=== PATIENT | female | born 1965 | race Hispanic/Latino ===

== ENCOUNTER → 2022-05-25 | Outpatient (CLI) | payer BC | END | disposition home or self-care (01) | LOC: RAH 10:00 | PROVIDERS: ATTEND Internal Medicine | DX: E21.0 Primary hyperparathyroidism (principal); D36.7 Benign neoplasm of other specified sites | CPT/HCPCS: 78070; A9500 ==

== ENCOUNTER → 2022-09-27 | Outpatient (CLI) | payer OTHER ==
[~2022-09-27] MED LIST: IOHEXOL 350 MG/ML 100ML INFUS..BTL IV ONE
== END | disposition home or self-care (01) ==
LOC: RAH 07:45
PROVIDERS: ATTEND Surgery
DX: N83.292 Other ovarian cyst, left side (principal); E83.52 Hypercalcemia
CPT/HCPCS: 70492; Q9967

== ENCOUNTER → 2023-01-05 | Outpatient (CLI) | payer OTHER | END | disposition home or self-care (01) | LOC: RAH 13:52 | PROVIDERS: ATTEND Family Medicine | DX: I13.10 Hypertensive heart and chronic kidney disease without heart failure, with stage 1 through stage 4 chronic kidney disease, or unspecified chronic kidney disease (principal); N18.9 Chronic kidney disease, unspecified; I82.622 Acute embolism and thrombosis of deep veins of left upper extremity; M79.622 Pain in left upper arm; M79.89 Other specified soft tissue disorders; Z90.12 Acquired absence of left breast and nipple | CPT/HCPCS: 93306; 93971 ==